=== PATIENT | male | born 1980 | race Caucasian/White ===

== ENCOUNTER 2021-03-24 18:04 | Outpatient (REF) | payer OTHER, SELFPAY ==
[2021-03-24 18:47] LABS: Influenza A PCR NEGATIVE (Negative); Influenza B PCR NEGATIVE (Negative); Resp Syncy Virus RNA Qual PCR NEGATIVE (Negative); SARS COV2 PCR INHOUSE NEGATIVE (Negative)
== END 2021-03-24 18:05 | disposition home or self-care (01) ==
LOC: HO.LNP 18:04
PROVIDERS: Visit Provider Family Medicine
DX: B34.9 Viral infection, unspecified (principal)
CPT/HCPCS: 0241U

== ENCOUNTER 2024-09-20 10:23 | Outpatient (REF) | payer OTHER, SELFPAY ==
[2024-09-23 10:53] LABS: Immunoglobulin A 253 mg/dL (47-310)
[2024-09-23 21:38] LABS: Gliadin Deamidated IgA Ab 9.9 U/mL; Gliadin Deamidated IgG Ab 7.7 U/mL; Transglutaminase Ab IgG <1.0 U/mL; Transglutaminase IgA 179.8 U/mL
[2024-09-25 20:53] LABS: Endomysial IgA Antibody Negative (Negative)
== END 2024-09-20 10:24 | disposition home or self-care (01) ==
LOC: HO.LAB 10:23
PROVIDERS: PCP Internal Medicine; Visit Provider Internal Medicine
DX: R14.0 Abdominal distension (gaseous) (principal)
CPT/HCPCS: 36415; 82784; 86231; 86258; 86364

== ENCOUNTER 2024-12-11 09:26 | Day surgery (SDC) | payer OTHER, SELFPAY ==
--- OUTSIDE RECORDS SUMMARY | 2024-11-22 12:55 | XMS_ITS | Patient Health Record ---
Author Organization [facility] Address [address] [place] [address] Care Team Providers Care Drill Press Operator Name Role Phone FERNANDO DICKERSON Primary Care Provider Darrell Gold [phone] Allergies No Known Allergies Results Component Value Reference Range Notes Immunoglobulin A Reviewed date:10/04/2024 05:58:41 PM Interpretation: Performing Lab:[address] [phone] Notes/Report: Immunoglobulin A 253 47-310 mg/dL THIS TEST WAS PERFORMED AT: [facility] [address] [place] [phone] SILVESTRE INFANTE MD Transglutaminase Ab IgG Reviewed date:10/04/2024 05:58:49 PM Interpretation: Performing Lab:[facility], [address] [place] [phone] Notes/Report: Transglutaminase Ab IgG <1.0 Value Interpretation ----- <15.0 Antibody not detected > or = 15.0 Antibody detected THIS TEST WAS PERFORMED AT: [facility] [address] [place] [phone] SILVESTRE INFANTE MD Transglutaminase IgA (Not ye t reviewed by provider) Interpretation: Performing Lab:[address] [address] Notes/Report: Transglutaminase IgA 179.8 Value Interpretation ----- <15.0 Antibody not detected > or = 15.0 Antibody detected THIS TEST WAS PERFORMED AT: [facility] [address] [place] [phone] SILVESTRE INFANTE MD Gliadin Ab Panel Reviewed date:10/04/2024 05:59:10 PM Interpretation: Performing Lab:[facility], [address] [place] [phone] Notes/Report: Gliadin Deamidated IgA Ab 9.9 Value Interpretation ----- <15.0 Antibody not detected > or = 15.0 Antibody detected Gliadin Deamidated IgG Ab 7.7 Value Interpretation ----- <15.0 Antibody not detected > or = 15.0 Antibody detected THIS TEST WAS PERFORMED AT: [facility] [address] [place] [phone] SILVESTRE INFANTE MD Endomysial IgA rflx Titer Reviewed date:10/04/2024 05:59:17 PM Interpretation: Performing Lab:[address] [phone] Notes/Report: Endomysial IgA Antibody Negative Negative THIS TEST WAS PERFORMED AT: [employer]/[address] [address] MILKA RUIZ MD,PHD Endomysial Titer TNP Reason For Referral No Information Medications Medication SIG (Take, Route, Fr equency, Duration) Notes Start Date End Date Status Biotin 10 MG 1 tablet Orally Once a day Active Multivitamin Adult - as directed Orally Active Immunizations Vaccine Route Administration Date Status Comme nts Influenza Unknown 02/26/2018 Administered Influenza Unknown 09/11/2024 Refused Social History Tobacco Use: Social History Observation Description Date Details (start date - stop date) Never Smoker NA - NA Tobacco Use/Smoking Question Answer Notes Patient is a nonsmoker Alcohol Screen Question Answer Notes Did you have a drink contain ing alcohol in the past year? Yes How often did you have a dri nk containing alcohol in the past year? 2 to 4 times a month (2 points) How many drinks did you have on a typical day when you were drinking in the past year? 1 or 2 drinks (0 point) Points 2 Interpretation Negative Section Notes: Nonsmoker; no sig alcohol Nonsmoker; no sig alcohol Problems Problem Type SNOMED Code ICD Code Onset Dates Problem Status W/U Status Risk Notes Problem Colon cancer screening (805640216) Colon cancer screening (Z12.11) Active confirmed Problem 272810506 Encounter for screening for malignant neoplasm of colon (Z12.11) Active confirmed Problem Flatulence, eructation and gas pain (445644162) Bloating (R14.0) Active confirmed Problem 288059586 Family history of colon cancer (Z80.0) Active confirmed Problem Family history of colon cancer in mother (Z80.0) Active confirmed Vital Signs Temperature 98.7 degrees Fahrenheit 09/11/2024 Blood pressure diastolic 01 mm Hg 09/11/2024 Height 67 in 09/11/2024 Blood pressure systolic 001 mm Hg 09/11/2024 Weight 185.6 lbs 09/11/2024 BMI 29.07 kg/m2 09/11/2024 Procedures Procedure Date Ordered Date Performed Result Body Sit e COLONOSCOPY 09/11/2024 N/A Encounters Encounter Location Date Provider Diagnosis [facility] [address] [place] [address] 09/11/2024 Darrell Gonzalez Family history of colon cancer in mother Z80.0 ; Colon cancer screening Z12.11 and Bloating R14.0 Assessments Encounter Date Diagnosis (ICD Code) Assessment Notes Treatment Notes Treatment Clinical Notes Section Notes 09/11/2024 Colon cancer screening (ICD-10 - Z12.11) 09/11/2024 Family history of colon cancer in mother (ICD-10 - Z80.0) 09/11/2024 Bloating (ICD-10 - R14.0) Try a Lactose-free diet to see if that helps with the bloating Plan Of Treatment Pending Test Test Name Order Date COLONOSCOPY 09/11/2024 CELIAC PANEL #10 09/11/2024 Transglutaminase IgA 09/20/2024 Future Test Test Name Order Date COLONOSCOPY 06/07/2018 Next Appt Details Provider Name:Darrell Gonzalez , 12/11/2024 10:50:00 AM, [address] [place], [place], [phone], Insurance Providers Payer Name Payer Address Payer Phone Subscriber Number Group Number Insured Name Patient Relationship to Insured Coverage Start Date Coverage End Date [facility] [address] [address] [place] [address] [phone] [id number] CEE HAMILTON Self - patient is the insured Medical (General) History Medical History History ICD Code Denies [place],DM,CVA,Lung disease,renal dise ase
--- NOTE | 2024-12-10 09:48 | P.CONAN_ITS ---
Documented by User: Sulema Mayen NP 12/10/24 09:48 HPI - Anesthesia Eval Consult details Narrative: 44yo M for Colonoscopy [facility] Active Problems Active Problems: All Active Problems Viral illness (Acute) Surgical History Surgical History Hx of cystoscopy (2017) Hx of colonoscopy (2019) Social History Social History Are you a primary caregivers homecare to a significant other at home: No Do you presently have visiting nurse or other home services: No Patient Tobacco Use Status: Never used Tobacco Use of substances other than those prescribed or required for medical reasons: No Have you been hit, kicked, punched, or otherwise hurt by someone within the past year? If so, by whom?: No Are you DNR?: No Advance Directives: No Advance Directives Information Provided: Yes Poor oral hygiene: No Meds Allergies Allergy/AdvReac Type Severity Reaction Status Date / Time No Known Allergies (No Known Allergy Verified 03/24/21 15:32 Allergies*) Home Medications ?Medication ?Instructions ?Recorded ?Confirmed ?Last Taken ?Type No Known Home Meds 03/24/21 03/24/21 Un known History Assessment and Plan Assessment Anesthesia Assessment: Chart Reviewed Documented by User: Pablito Angeles MD 12/11/24 10:05 [facility] Past Medical History Cognitive capacity: normal Family History Family history of problems with anesthesia: No Surgical History Surgical History Hx of cystoscopy (2018) Hx of colonoscopy (2019) History of Problems with Anesthesia: No Social History Social History Are you a primary caregivers homecare to a significant other at home: No Do you presently have visiting nurse or other home services: No Patient Tobacco Use Status: Never used Tobacco Use of substances other than those prescribed or required for medical reasons: No Have you been hit, kicked, punched, or otherwise hurt by someone within the past year? If so, by whom?: No Are you DNR?: No Advance Directives: No Advance Directives Information Provided: Yes Poor oral hygiene: No Meds Allergies Allergy/AdvReac Type Severity Reaction Status Date / Time No Known Allergies (No Known Allergy Verified 03/24/21 15:32 Allergies*) Home Medications ?Medication ?Instructions ?Recorded ?Confirmed ?Last Taken ?Type No Known Home Meds 03/24/21 03/24/21 Un known History Exam Exam Date and Time: 12/11/2024 Airway Mallampati Class: II TM Dist: >3cm Neck ROM: Full Loose/Missing/Broken Teeth: No (patient has normal dentition) Heart: RRR Lungs: CTA Other: NORMAL HEALTHY PATIENT WITH A FAMILY HISTORY OF COLON CANCER Assessment and Plan Final Anesthetic Review Family History of Problems with Anesthesia: No History of Problems with Anesthesia: No NPO: Yes ASA Class: I Final Preanesthetic Review: No Changes in Pt Med Stat, Meds/Allgs Chart Reviewed, Consent Obtained/Reviewed and Anes Risks/Benef Reviewed Patient Risk: Low Procedure Risk: Low Anesthetic Plan Anesthetic Plan: MAC: Disposition: Standard PACU
[2024-12-11 09:53] VITALS: BMI 29.2
[2024-12-11 10:08] VITALS: BP 118/74; PULSE 64; RESP 16; TEMP 36.4; O2SAT 96
[2024-12-11] MEDS: Lactated Ringers 1,000 ML 100 ML IVCONT (10:16)
[2024-12-11 11:58] VITALS: BP 97/62; PULSE 79; RESP 18; TEMP 36.1; O2SAT 97
--- NOTE | 2024-12-11 12:02 | P.BOP_ITS ---
Brief Operative Note Date of Service: 12/11/24 Pre-op diagnosis: Abnormal Celiac Disease Lab, Screening Post-op diagnosis: other (Small hiatal hernia, Gastric polyp, Internal hemorrhoids) Procedure: EGD with biopsies, Colonoscopy to the cecum and TI Surgeon: Darrell Gonzalez MD Anesthesia: MAC Was an Airconditioning Drafting Officer used for this Procedure?: No Estimated blood loss (mL): 2.0 Pathology: other (A. 2nd and 3rd portions of duodenum B. Duodenal bulb C. Gastric polyp) Condition: stable Disposition: PACU
[2024-12-11 12:13] VITALS: BP 107/72; PULSE 71; RESP 16; TEMP 36.1; O2SAT 97
--- NOTE | 2024-12-11 12:16 | OP_ITS ---
DATE OF SERVICE: 12/11/2024 SURGEON: Darrell Gonzalez MD INDICATIONS: The patient presents for evaluation of abdominal bloating, abnormal celiac disease lab, family history of celiac disease, colorectal cancer screening and family history of colon cancer. PREOPERATIVE DIAGNOSIS: POSTOPERATIVE DIAGNOSIS: PROCEDURE PERFORMED: ESTIMATED BLOOD LOSS: COMPLICATIONS: ANESTHESIA: Medication used, monitored anesthesia care. ASSISTANTS: SPECIMENS: PROCEDURES: Esophagogastroduodenoscopy with biopsies, and colonoscopy to the cecum and terminal ileum. POSTOPERATIVE DIAGNOSES: The patient presents for evaluation of abdominal bloating, abnormal celiac disease lab, family history of celiac disease, colorectal cancer screening and family history of colon cancer, small hiatal hernia, small gastric polyp, rule out celiac disease, internal hemorrhoids. DESCRIPTION OF PROCEDURE: The patient was placed in the left lateral decubitus position. The Olympus video gastroscope was passed in the posterior oropharynx and upper esophagus under direct vision. The scope was passed slowly into the distal esophagus. The gastroesophageal junction appeared normal at 38 cm. There was no sign of any esophagitis nor Mcdonald esophagus. The scope entered the stomach. There was a small hiatal hernia. The scope was advanced to pylorus and the duodenum was cannulated to the descending portion. The duodenum including the bulb appeared normal without mass or ulceration. The duodenal folds appeared normal. There was no obvious evidence of scalloping or any other abnormalities to suggest celiac disease. The major papilla was visualized with good flow of bile coming from it. The major papilla appeared normal without any sign of surrounding polyp tissue. Multiple biopsies were obtained in the 2nd and 3rd portions of duodenum, and from the duodenal bulb. The scope was withdrawn back in the stomach. The gastric antrum and body appeared normal with good peristalsis. The scope was retroflexed visualizing the proximal stomach carefully, which appeared normal, without any mass or ulceration, other than a hyperplastic-appearing 5 mm gastric polyp in the very proximal stomach, which was biopsied and completely removed with cold biopsy forceps. The scope was straightened and withdrawn back to the esophagus. The esophageal mucosa appeared normal. The scope was withdrawn from the patient. He was turned around for colonoscopy. The digital rectal exam revealed no abnormalities. The Olympus video pediatric colonoscope was entered into the rectum and advanced easily to the cecum. Once in the cecum, I did identify normal-appearing cecal pouch with appendiceal orifice and a normal-appearing ileocecal valve. The terminal ileum was cannulated and appeared normal. The scope was withdrawn back in the colon. The entire cecum and ileocecal valve appeared normal. The scope was slowly withdrawn assessing all mucosal surfaces carefully. Preparation was excellent. I did not visualize any sign of polyps, colitis, nor angiodysplasia. In the rectum, scope was retroflexed visualizing small internal hemorrhoids, but no other pathology. The rectal mucosa appeared normal. The scope was straightened and withdrawn from the patient. He tolerated the procedures well and was returned to the recovery area in stable condition. IMPRESSION: 1. Small hiatal hernia. 2. Small gastric polyp, status post biopsy removal. 3. Rule out celiac disease. 4. Small internal hemorrhoids. PLAN: The results of biopsies will be checked. I would recommend a repeat colonoscopy in 5 years for further screening in regard to the family history of colon cancer and colon polyps. He has been advised to seek geriatric counseling for a testing to assess for Baron syndrome as he reports that several first-degree and second-degree relatives have that based on laboratories. If he does have the testing done and is positive for Baron syndrome, I would recommend a repeat upper endoscopy when he has his next colonoscopy for surveillance in that regard as well. He will be contacted regarding the biopsy results and if indeed he is found to have celiac disease, he would need to be on a gluten-free diet. MD RACHNA Graham/JESUS / [phone] MTDD
== END 2024-12-11 12:39 | disposition home or self-care (01) ==
PROVIDERS: PCP Internal Medicine; Visit Provider Internal Medicine
PROC: 0DJD8ZZ Inspection of Lower Intestinal Tract, Via Natural or Artificial Opening Endoscopic (ICD-10-PCS; CPT 45378; principal; 2024-12-11 10:50)
DX: Z12.11 Encounter for screening for malignant neoplasm of colon (principal); Z80.0 Family history of malignant neoplasm of digestive organs; K64.8 Other hemorrhoids; R14.0 Abdominal distension (gaseous); R14.3 Flatulence; Z83.79 Family history of other diseases of the digestive system; K31.7 Polyp of stomach and duodenum; K44.9 Diaphragmatic hernia without obstruction or gangrene; K29.80 Duodenitis without bleeding; Z79.899 Other long term (current) drug therapy
CPT/HCPCS: 45378; 43239; 88305; 88313; 88342; J2704

== ENCOUNTER 2025-04-09 12:26 | Outpatient (REF) | payer OTHER, SELFPAY ==
--- OUTSIDE RECORDS SUMMARY | 2024-12-11 05:50 | XMS_ITS ---
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 Phone FERNANDO DICKERSON Primary Care Provider Darrell Gold [phone] REASON FOR VISIT screening,fam hx colon ca Encounters Encounter Location Date Provider Diagnosis [facility] [place] [address] [place] [phone] 12/11/2024 Drarell Gonzalez Plan Of Treatment Next Appt Details Provider Name:Darrell Gonzalez , 04/30/2025 02:00:00 PM, [address] [facility], [address], [place], [address], Progress Notes * EVERT HAMILTONDOB: [birth year] (44 yo M)Acc No.[id number]:12/11/2024 COLON WITH MAC Patient: EVERT LAY Provider: Belen Gonzalez MD :1980 A ge:44 Y S ex:Male Date:12/11/2024 Address:[address] [place] [address] [id number] Pcp:FERNANDO DICKERSON Subjective: * Chief Complaints: * 1 . Screening,fam hx colon ca. * Medical History: Objective: * Vitals: Assessment: Plan: * Treatment: * * The named appointment provid er may or may not be the originator of this progress note, and it is not deemed complete until electronically signed by the appointment provider. Sign off status: Pending * Provider: Belen Gonzalez MD Date: 0 12/11/2024 Generated for Jodi kaufman/Benny/Shu on: 06/09/2024 03:05 PM EST
--- OUTSIDE RECORDS SUMMARY | 2025-04-09 15:06 | XMS_ITS | Patient Health Record ---
Author Organization [facility] Address [address] [place] [address] Care Team Providers Care Dynamics Ax Consultant Name Role Phone FERNANDO DICKERSON Primary Care Provider Darrell Gold [phone] Allergies No Known Allergies Results Component Value Reference Range Notes Immunoglobulin A Reviewed date:10/04/2024 05:58:41 PM Interpretation: Performing Lab:[facility], [address] [place] [phone] Notes/Report: Immunoglobulin A 253 47-310 mg/dL THIS TEST WAS PERFORMED AT: [facility] [address] [place] [phone] SILVESTRE INFANTE MD Transglutaminase Ab IgG Reviewed date:10/04/2024 05:58:49 PM Interpretation: Performing Lab:[facility], [address] [place] [phone] Notes/Report: Transglutaminase Ab IgG <1.0 Value Interpretation ----- <15.0 Antibody not detected > or = 15.0 Antibody detected THIS TEST WAS PERFORMED AT: [facility] [address] [place] [phone] SILVESTRE INFANTE MD Transglutaminase IgA Reviewed date:12/10/2024 07:17:36 PM Interpretation: Performing Lab:[facility], [address] [place] [phone] Notes/Report: Transglutaminase IgA 179.8 Value Interpretation ----- <15.0 Antibody not detected > or = 15.0 Antibody detected THIS TEST WAS PERFORMED AT: [facility] [address] [place] [phone] SILVESTRE INFANTE MD Gliadin Ab Panel Reviewed date:10/04/2024 05:59:10 PM Interpretation: Performing Lab:[facility], [address] [place] [phone] Notes/Report: Gliadin Deamidated IgA Ab 9.9 Value Interpretation ----- <15.0 Antibody not detected > or = 15.0 Antibody detected Gliadin Deamidated IgG Ab 7.7 Value Interpretation ----- <15.0 Antibody not detected > or = 15.0 Antibody detected THIS TEST WAS PERFORMED AT: [facility] [address] [place] [phone] SILVESTRE INFANTE MD Endomysial IgA rflx Titer Reviewed date:10/04/2024 05:59:17 PM Interpretation: Performing Lab:[facility], [address] [place] [phone] Notes/Report: Endomysial IgA Antibody Negative Negative THIS TEST WAS PERFORMED AT: [facility]/[address] [phone] MILKA RUIZ MD,PHD Endomysial Titer TNP Pathology Reviewed date:12/22/2024 09:55:34 PM Interpretation: Performing Lab:[facility], [address] [place] [phone] Notes/Report: Reason For Referral No Information Medications Medication [...] Status Risk Notes Problem Colon cancer screening (953801643) Colon cancer screening (Z12.11) Active confirmed Problem Screening for malignant neoplasm of colon (931309175) Encounter for screening for malignant neoplasm of colon (Z12.11) Active confirmed Problem Flatulence, eructation and gas pain (267616998) Bloating (R14.0) Active confirmed Problem Celiac disease (023150161) Celiac disease (K90.0) Active confirmed Problem Family History of Cancer of Colon (Situation) (188056025) Family history of colon cancer (Z80.0) Active confirmed Problem Family history of malignant neoplasm of gastrointestinal tract (933137007) Family history of colon cancer in mother (Z80.0) Active confirmed Vital Signs Temperature 98.7 degrees Fahrenheit 09/11/2024 Blood pressure diastolic 01 mm Hg 09/11/2024 Height 67 in 09/11/2024 Blood pressure systolic 001 mm Hg 09/11/2024 Weight 185.6 lbs 09/11/2024 BMI 29.07 kg/m2 09/11/2024 Procedures Procedure Date Ordered Date Performed Result Body Sit e COLONOSCOPY 09/11/2024 N/A Encounters Encounter Location Date Provider Diagnosis [facility] [place] [address] [place] [id number] 12/11/2024 Darrell Gonzalez [facility] [address] [place] [phone] 09/11/2024 Darrell Gonzalez Family history of colon cancer in mother Z80.0 ; Bloating R14.0 and Colon cancer screening Z12.11 [facility] [address] [place] [phone] 12/05/2024 Darrell Gonzalez [facility] [address] [place] [phone] 12/15/2024 Darrell Gonzalez Celiac disease K90.0 Assessments Encounter Date Diagnosis (ICD Code) Assessment Notes Treatment Notes Treatment Clinical Notes Section Notes 09/11/2024 Bloating (ICD-10 - R14.0) Try a Lactose-free diet to see if that helps with the bloating Overall, Cee appears quite well. I did recommend a follow-up colonoscopy for further screening purposes given his significant family history of colorectal cancer and polyps and his last colonoscopy being back in 2018, as well as family members reportedly positive for Baron syndrome. We did review the rationale for the colonoscopy in regard to colorectal cancer prevention and/or early detection. At some point Cee should go to a genetics clinic and get tested for Baron syndrome as well. This would need a referral from his PCP. In regard to his symptoms of bloating and gas this may be some mild irritable bowel syndrome and/or lactose intolerance. I did advise him to try a lactose-free diet to see if that gives him any relief. Given the family history of celiac disease in his daughter, I shall check a celiac disease profile. If that is abnormal we could proceed with an upper endoscopy with duodenal biopsies on the same day as the colonoscopy. Full consent has been taken from him for the colonoscopy, as well as the upper endoscopy if needed, including risks of bleeding and perforation. The procedures will be done with monitored anesthesia care. Cee was comfortable with this plan. Thank you again for allowing me to participate in Cee's care. I shall continue to keep you advised of his progress. 09/11/2024 Family history of colon cancer in mother (ICD-10 - Z80.0) Overall, Cee appears quite well. I did recommend a follow-up colonoscopy for further screening purposes given his significant family history of colorectal cancer and polyps and his last colonoscopy being back in 2019, as well as family members reportedly positive for Baron syndrome. We did review the rationale for the colonoscopy in regard to colorectal cancer prevention and/or early detection. At some point Cee should go to a genetics clinic and get tested for Baron syndrome as well. This would need a referral from his PCP. In regard to his symptoms of bloating and gas this may be some mild irritable bowel syndrome and/or lactose intolerance. I did advise him to try a lactose-free diet to see if that gives him any relief. Given the family history of celiac disease in his daughter, I shall check a celiac disease profile. If that is abnormal we could proceed with an upper endoscopy with duodenal biopsies on the same day as the colonoscopy. Full consent has been taken from him for the colonoscopy, as well as the upper endoscopy if needed, including risks of bleeding and perforation. The procedures will be done with monitored anesthesia care. Cee was comfortable with this plan. Thank you again for allowing me to participate in Cee's care. I shall continue to keep you advised of his progress. 12/15/2024 Celiac disease (ICD-10 - K90.0) 09/11/2024 Colon cancer screening (ICD-10 - Z12.11) Overall, Cee appears quite well. I did recommend a follow-up colonoscopy for further screening purposes given his significant family history of colorectal cancer and polyps and his last colonoscopy being back in 2019, as well as family members reportedly positive for Baron syndrome. We did review the rationale for the colonoscopy in regard to colorectal cancer prevention and/or early detection. At some point Cee should go to a genetics clinic and get tested for Baron syndrome as well. This would need a referral from his PCP. In regard to his symptoms of bloating and gas this may be some mild irritable bowel syndrome and/or lactose intolerance. I did advise him to try a lactose-free diet to see if that gives him any relief. Given the family history of celiac disease in his daughter, I shall check a celiac disease profile. If that is abnormal we could proceed with an upper endoscopy with duodenal biopsies on the same day as the colonoscopy. Full consent has been taken from him for the colonoscopy, as well as the upper endoscopy if needed, including risks of bleeding and perforation. The procedures will be done with monitored anesthesia care. Cee was comfortable with this plan. Thank you again for allowing me to participate in Cee's care. I shall continue to keep you advised of his progress. Plan Of Treatment Pending Test Test Name Order Date COLONOSCOPY 09/11/2024 CELIAC PANEL #10 09/11/2024 Celiac Disease Panel 12/15/2024 Future Test Test Name Order Date COLONOSCOPY 06/07/2018 Next Appt Details Provider Name:Darrell Robles Lisa , 04/30/2025 02:00:00 PM, [address] [facility], [address], [place], [address], Insurance Providers Payer Name Payer Address Payer Phone Subscriber Number Group Number Insured Name Patient Relationship to Insured Coverage Start Date Coverage End Date R [address] [address] [place] [address] [phone] [id number] [phone] CEE HAMILTON Self - patient is the insured Medical (General) History Medical History History ICD Code Denies [place],DM,CVA,Lung disease,renal dise ase Negative screening colonoscopy in July 2018.
[2025-04-16 22:14] LABS: Immunoglobulin A 272 mg/dL (47-310)
== END 2025-04-09 12:27 | disposition home or self-care (01) ==
LOC: HO.LAB 12:26
PROVIDERS: PCP Internal Medicine; Visit Provider Internal Medicine
DX: Z01.84 Encounter for antibody response examination (principal); K90.0 Celiac disease
CPT/HCPCS: 36415; 82784; 86364